=== PATIENT | female | born 1950 | race Caucasian/White ===

== ENCOUNTER 2016-04-18 15:14 | Observation (INO) | payer MEDICARE ==
[2016-04-18] MEDS ORDERED: MORPHINE 4 MG/ML INJECTION IV ONE ×2 (15:34→18:35)
[2016-04-18] MEDS ORDERED: ONDANSETRON HCL 4 MG/2 ML VIAL IV STA (15:34)
[2016-04-18] MEDS ORDERED: NITROGLYCERINE 2 % OINTMENT PACK TOP STA (15:34)
--- NOTE | 2016-04-18 15:42 | EDPRACDOC ---
[id number] Provider: 04/18/16 15:26 Information Source: Patient Mode of Arrival: Ambulance Home Medications: Home Medications Calcium Carbonate [Calcium] 500 mg PO DAILY 04/18/16 Multivit-Min/Folic Acid/Biotin [Hair, Skin and Nails Caplet] 1 tab PO DAILY Lisinopril 5 mg PO DAILY #30 tablet 04/19/16 Allergies/Adverse Reactions: Allergies Allergy/AdvReac Type Severity Reaction Status Date / Time No Known Allergies Allergy Verified 03/02/16 16:48 - History of Present Illness Onset: 1430 HPI: PT PRESENTS WITH SUBSTERNAL CHEST PAIN THAT BEGAN AROUND 1430. GIVEN NITROGLYCERIN AND ASPIRIN WITH PARTIAL RELIEF OF PAIN. Chest Pain Location: Reports: Substernal Pain Radiation: Reports: Arm (R) Symptoms Occur: Reports: At Rest Cardiac Risk Factors: Reports: Smoker, Hypertension Cardiac History of: Denies: [place], Cardiac Cath, Stress Test Medications within 24 Hours: Reports: Aspirin, Nitro Prehospital Care: Reports: SL NTG, ASA Pain Came On: Reports: Suddenly Pain Status: Present Now Pain Description: Reports: Pressure Pain Severity: Mild Pain Worsens With: Reports: Nothing Pain Improves With: Reports: Nitroglycerin Associated Signs and Symptoms: Reports: SOB. Denies: Abdominal Pain, Vomiting ED Past Medical History - History Reviewed Yes Nurses notes reviewed and agree except as marked - Patient Medical History Neurological History: Reports: Dementia (PER SPOUSE) Respiratory History: Reports: COPD, Pneumonia GI/ History: Reports: Ulcer (AGE 20) Musculoskeletal History: Reports: Arthritis Psychological History: Reports: Anxiety (SEVERE PANIC ATTACKS), Bipolar Disorder (NOT TAKING MEDICATION). Denies: Depression, Substance Use Disorder Surgical History: Reports: Tonsillectomy/Adnoidectomy - Family Medical History Reports: Hypertension (FATHER), Stroke (FATHER ), Cardiac Disorders (FATHER). Denies: Diabetes, Cancer - Social Medical History Smoking Status: Heavy tobacco smoker (5 or more cigarettes/day or daily pipe/ cigar) Social History: Denies: Substance Use Disorder Lives In: Home EDM Review of Systems - Review of Systems ROS Negative Except as Marked: Yes All systems reviewed and were negative except as marked Constitutional: negative: Fever Respiratory: Shortness of Breath Cardiovascular: Chest Pain Gastrointestinal: Nausea. negative: Pain - Physical Exam Constitutional: Alert Oriented to: Time, Person, Place Last recorded Vital Signs: Last Vital Signs Temp 98.5 F 04/18/16 15:26 Pulse 89 04/18/16 15:32 Resp 18 04/18/16 15:32 BP 132/86 04/18/16 15:32 Pulse Ox 93 04/18/16 15:32 Oxygen Pulse Oxygen Saturation 93 O2 Device Room Air Oxygen Flow Rate Fraction of Inspired Oxygen ( FIO2) - HEENT Head: negative: Deformity, Laceration Eye Exam: negative: Conjunctival Injection, Pale Conjunctiva Oropharynx: negative: Membranes Dry Nose: negative: Congestion, Discharge Neck: negative: Limited ROM - Respiratory/Cardiovascular Respiratory: Normal - CTA. negative: Accessory Muscle Use, Diminished, Tachypnea Cardiovascular: negative: Bradycardia, Tachycardia, Irregular - GI Auscultation: Normal Palpation: Normal Tenderness: Non tender - Musculoskeletal Extremities: Pedal Pulse (PALPABLE), Radial Pulse (PALPABLE). negative: Calf Tenderness, Pedal Edema - Integumentary Skin: Warm, Dry. negative: Rash - Neurologic Memory Impaired: Normal Motor Function: Normal Mood Description: Anxious, Appropriate Thought: Coherent Perception: Normal ED Chest Pain Exam - Respiratory/Cardiovascular Chest Palpation: negative: Tender, Reproduces Pain - Action Patient received Aspirin within last 24 hours?: Yes ASA given in the ED: No - Results 04/18/16 15:25 04/19/16 04:30 - EKG EKG #1 EKG Time: 15:26 -: Yes EKG interpreted by me Rate: bpm: 90 Rhythm: NSR Block: IVCD ST: Nonsp - Departure Yes I personally saw and evaluated the patient. Disposition: Admit IP To This Hospital Condition: Improved Final Diagnosis: CHEST PAIN Decision to Admit Time: 17:15 Decision to admit date: 04/18/16 Decision to admit: from ED
[2016-04-18 15:55] LABS: AUTOMATED BASOPHIL 0.9 % (0-2); AUTOMATED EOSINOPHIL 1.5 % (0-5); AUTOMATED MONOCYTE 5.4 % (3-10); AUTOMATED NEUTROPHIL 78.2 % (45-76); MPV 8.7 fL (7.4-10.4)
[2016-04-18 16:09] LABS: BLOOD UREA NITROGEN 24 MG/DL (7-17); CALCIUM 8.9 MG/DL (8.4-10.2); CALCULATED OSMOLALITY 260 MOs/Kg (270-290); CHLORIDE 99 mEq/L (98-107); GLUCOSE 124 MG/DL (70-99); SODIUM LEVEL 132 mEq/L (137-146)
[2016-04-18 16:10] LABS: PARTIAL THROMB. TIME 25.6 SEC (22-35); PT-INR 1.1
--- NOTE | 2016-04-18 16:12 | DIRPT ---
CLINICAL DATA: Chest pain since 2 p.m. today EXAM: CHEST 2 VIEW COMPARISON: 12/03/2013 FINDINGS: Interstitial markings at the apices could reflect emphysema but there is no hyperinflation. There is no edema, consolidation, effusion, or pneumothorax. Normal aortic and hilar contours. IMPRESSION: No acute finding or change since 2013. Electronically Signed By: Eliazar Hammond M.D. On: 04/18/2016 16:09
--- NOTE | 2016-04-18 17:26 | HISTPHYS ---
- Chief Complaint Pt Pt presents EMS from home c/o central chest pain rated 9/10 and described as "pressure" with associated nausea, no vomiting, no diaphoresis, no prior hx of same. No adventitious lung sounds on auscultation. Pt appears anxious. Vitals WNL on arrival. - History of Present Illness PT PRESENTS WITH SUBSTERNAL CHEST PAIN THAT BEGAN AROUND 1430. GIVEN NITROGLYCERIN AND ASPIRIN WITH PARTIAL RELIEF OF PAIN. Chest Pain Location: Reports: Substernal Pain Radiation: Reports: Arm (R) Symptoms Occur: Reports: At Rest Cardiac Risk Factors: Reports: Smoker, Hypertension Cardiac History of: Denies: [place], Cardiac Cath, Stress Test Medications within 24 Hours: Reports: Aspirin, Nitro Prehospital Care: Reports: SL NTG, ASA Pain Came On: Reports: Suddenly Pain Status: Present Now Pain Description: Reports: Pressure Pain Severity: Mild Pain Worsens With: Reports: Nothing Pain Improves With: Reports: Nitroglycerin Associated Signs and Symptoms: Reports: SOB. Denies: Abdominal Pain, Vomiting pt admitted to hosp in [place] 04/04/16 for COPD exacerbation (new Diagnosis) Patient is a very vague historian but is concerned about her chest pain. It she has been told that she has elevated blood pressures by at least 1 physician recently but does not recall who or where or what the circumstances were. She continues to enjoy smoking. She will be admitted to the hospital to rule out myocardial infarction. I did counseling director her that she needs to complete history and physical examination. - Medical History Cardiac History: Reports: Hypertension Respiratory History: Reports: COPD, Pneumonia GI/ History: Reports: Ulcer (AGE 20) Musculoskeletal History: Reports: Arthritis Neurological History: Reports: Dementia (PER SPOUSE) Psychological History: Reports: Anxiety (SEVERE PANIC ATTACKS), Bipolar Disorder (NOT TAKING MEDICATION). Denies: Depression, Substance Use Disorder - Surgical History Reports: Tonsillectomy/Adnoidectomy - Medictions/Allergies Allergies No Known Allergies Allergy (Verified 03/02/16 16:48) PER PATIENT Current Medication List: Reviewed Home Medications Calcium Carbonate [Calcium] 500 mg PO DAILY 04/18/16 Multivit-Min/Folic Acid/Biotin [Hair, Skin & Nails Caplet] 1 tab PO DAILY - Family History Reports: Hypertension (FATHER), Stroke (FATHER ), Cardiac Disorders (FATHER). Denies: Diabetes, Cancer - Social History Travel Outside of [place] in the Last 3 Months?: No Lives: With Family Smoking Status: Heavy tobacco smoker (5 or more cigarettes/day or daily pipe/ cigar) Social History: Denies: Substance Use Disorder - Review of Systems Constitutional: No Symptoms Reported (No Fever, chills, wt loss/gain, diaphoresis,fatigue/malaise.) Eyes: No Symptoms Reported (No blurry vision, visual changes, eye pain, or eye redness.) Nose: No Symptoms Reported (No nasal discharge/congestion or bleeding) Mouth: No Symptoms Reported (No oropharyngeal lesions or erythema) Throat/Neck: No Symptoms Reported (No throat pain or swelling.No oropharyngeal lesions or erythema.) Respiratory: No Symptoms Reported (No cough, wheezing, or shortness of breath.) Cardiovascular: Chest Pain, Other (chest pressure) Gastrointestinal: No Symptoms Reported (No abdominal pain, nausea, vomiting, diarrhea, constipation, or bloody stool.) Genitourinary: No Symptoms Reported (No dysuria or hematuria.) Neurological: No Symptoms Reported (No headache, dizziness, seizures, or focal weakness.) Musculoskeletal:: No Symptoms Reported Integumentary: No Symptoms Reported (no rashes or lesions) - Physical Exam Vital Signs: Initial Vitals Temperature 98.5 F 04/18/16 15:26 Pulse Rate 90 04/18/16 15:26 Respiratory Rate 18 04/18/16 15:26 Blood Pressure 132/86 04/18/16 15:26 Pulse Oxygen Saturation 94 04/18/16 15:26 Constitutional: Alert (Awake, Fully oriented. Normal and appropriate affect.Well appearing. Well nourished.), No apparent distress Oriented to: Time, Person, Place - HEENT Head: Normal (normocephalic, atraumatic.), Other (No cervical lymphadenopathy. No supraclavicular lymphadenopathy. Neck: No palpable mass, supple , trachea midline.) Eye: Normal (pupils equal, reactive to light, and round; EOMI, Sclera white) Oropharynx: Normal (Pharynx: Moist without exudate,Gums-no swelling, No oropharyngeal lesions or erythema, Mucous membranes are dry.) Tympanic Membrane: Normal (no discharge) ENT EAC: Normal (No oropharyngeal lesions or erythema. Mucous membranes are dry. ) TMJ: Normal Nose: No Symptoms Reported (septum midline, Nares patent, without discharge or bleeding.) Respiratory: Normal - CTA (Clear to auscultation bilaterally. No wheezing, rales , rhonchi. Chest wall movements are symmetric. No use of accessory muscles to breathe.) Cardiovascular: Normal (RRR , Normal S1, S2. No murmurs, rubs, or gallops. PMI non-displaced. Carotids: no carotid bruits. No bradycardia or tachycardia. DP pulses 2+ bilaterally.) - GI Auscultation: Normal (normal active sounds) Palpation: Normal (Soft,non distended,nontender. No hepatosplenomegaly.) Tenderness: Non tender (No rebound or guarding) Hendrix's Sign: Negative - Musculoskeletal Back: Normal (Non-Tender) Extremities: Normal (Normal tone, DP pulses 2+ bilaterally, No cyanosis or edema bilaterally, FROM bilaterally.) - Integumentary Skin: Normal (Clean, dry, and intact. No rashes. No lesions.) Lymphatics: Normal (No cervical lymphadenopathy. No supraclavicular lymphadenopathy.) - Neurologic Memory Impaired: Normal Motor Function: Normal (Motor 5/5 throughout.Normal tone, Pulses 2+ No cyanosis or edema, FROM) Cranial Nerve: Normal (CN II-XII intact sensation, strength 5/5) Cerebellar: Normal (Babinski: toes downgoing bilaterally. Intact Finger to nose. Sensory grossly intact to light touch. Intact rapid alternating movements bilaterally. No pronator drift.) Mood Description: Normal (Fully oriented. Normal and appropriate affect.) Perception: Normal (Normal and appropriate affect.) - Focused CV Perfusion Exam Vital Signs: Last Vital Signs Temp 98.5 F 04/18/16 15:26 Pulse 82 04/18/16 17:11 Resp 20 04/18/16 17:11 BP 153/86 04/18/16 17:11 Pulse Ox 95 04/18/16 17:11 - Lab Results Laboratory Results - last 24 hr 04/18/16 04/18/16 04/18/16 15:25 15:25 15:25 WBC 11.4 H RBC 4.66 Hgb 13.8 Hct 41.3 MCV 89 MCH 29.7 MCHC 33.5 RDW 15.9 H Plt Count 259 MPV 8.7 Neut % (Auto) 78.2 H Lymph % (Auto) 14.0 L Butts % (Auto) 5.4 Eos % (Auto) 1.5 Baso % (Auto) 0.9 Absolute Neuts (auto) 8.89 H Absolute Lymphs (auto) 1.60 PT 10.9 INR 1.1 APTT 25.6 Sodium 132 L Potassium 4.6 Chloride 99 Carbon Dioxide 24 Anion Gap 14 BUN 24 H Creatinine 0.50 L Estimated GFR (MDRD) > 60 Glucose 124 H Calculated Osmolality 260 L Calcium 8.9 Corrected Calcium 9.0 Total Bilirubin 0.5 AST 25 ALT 26 Alkaline Phosphatase 112 Troponin I < 0.01 Total Protein 7.0 Albumin 3.9 - Diagnostic Findings CHEST 2 VIEW COMPARISON: 12/03/2013 FINDINGS: Interstitial markings at the apices could reflect emphysema but there is no hyperinflation. There is no edema, consolidation, effusion, or pneumothorax. Normal aortic and hilar contours. IMPRESSION: No acute finding or change since 2013. Electronically Signed By: Eliazar Hmamond M.D. On: 04/18/2016 16:09 EKG #1 EKG Time: 15:26 -: Yes EKG interpreted by me Rate: bpm: 90 Rhythm: NSR Block: IVCD ST: Nonsp personally seen by me - Assessment (1) Chest pain R07.9 - CHEST PAIN, UNSPECIFIED Acute Present on Admission: Yes Qualifiers: Chest pain type: precordial pain Qualified Code(s): R07.2 - Precordial pain Patient will be observed in the chest Pain observation center sure rule out for myocardial infarction with serial enzymes and EKGs. If these are negative she will progressed to stress testing. (2) Shortness of breath R06.02 - SHORTNESS OF BREATH Acute Present on Admission: Yes Classic symptom of angina and women. Will monitor closely. May also be related to her CHRONIC OBSTRUCTIVE PULMONARY DISEASE although at the present time she is not wheezing. (3) Hypertension I10 - ESSENTIAL (PRIMARY) HYPERTENSION Suspected Present on Admission: Yes Qualifiers: Hypertension type: essential hypertension Qualified Code(s): I10 - Essential (primary) hypertension Patient has been diagnosed with elevated blood pressures blood pressure here is consistent with hypertension will monitor blood pressures while in the hospital consider discharge on medications if indicated. (4) Tobacco abuse Z72.0 - TOBACCO USE Chronic Present on Admission: Yes Patient does enjoy smoking she quit the other day. Monitor closely. She does request a nicotine patch. Case Care Discussed with: Patient, Nursing Staff Total Time: 55 minutes Critical Care: No Couseling Time (>50% in counseling/coordination): No
[2016-04-18] MEDS ORDERED: METOPROLOL TARTRATE 25 MG TAB PO ONE (18:00)
[2016-04-18] MEDS ORDERED: Pharmacy Order Set Alert SCH (18:00)
[2016-04-18] MEDS ORDERED: ACETAMINOPHEN 325 MG/TAB TABLET PO ONE (18:35)
[2016-04-18] MEDS ORDERED: GUAIFEN 100 MG-DEXTROMETH 10 MG PER 5 ML PO PRN (18:50)
[2016-04-18] MEDS ORDERED: ACETAMINOPHEN 325 MG SUPP PR PRN (18:50)
[2016-04-18] MEDS ORDERED: SENNA CONCENTRATE TAB PO PRN (18:50)
[2016-04-18] MEDS ORDERED: ONDANSETRON HCL 4 MG/2 ML VIAL IV PRN (18:50)
[2016-04-18] MEDS ORDERED: PROMETHAZINE 25 MG/ML VIAL IV PRN (18:50)
[2016-04-18] MEDS ORDERED: Aluminum;Magnesium;Simethicone 30 ML UDC PO PRN (18:50)
[2016-04-18] MEDS ORDERED: BISACODYL 5 MG TAB PO PRN (18:50)
[2016-04-18] MEDS ORDERED: BENZONATATE 100 MG PERLES PO PRN (18:50)
[2016-04-18 20:02] VITALS: BMI 27.5
[2016-04-18] MEDS: NITROGLYCERINE 0.4 MG TAB SL PRN ×3 (20:07→20:43)
[2016-04-18] MEDS ORDERED: Vaccine Screening Complete SCH (21:00)
[2016-04-18] MEDS: ASPIRIN (CHEWABLE) 81 MG TAB PO SCH (22:48)
[2016-04-18] MEDS: ENOXAPARIN 40 MG/0.4 ML PFS SQ SCH (22:48)
[2016-04-18] MEDS: MORPHINE 2 MG/ML INJECTION IV PRN (23:19)
[2016-04-19] MEDS: TEMAZEPAM 15 MG CAP PO PRN ×3 (00:21→23:36)
[2016-04-19] MEDS: MORPHINE 2 MG/ML INJECTION IV PRN ×5 (03:21→21:13)
[2016-04-19 05:00] LABS: LDL (calc.) 91.4 MG/DL (<100); VLDL (calc.) 15.6 MG/DL (5-40)
[2016-04-19] MEDS: NITROGLYCERINE 0.4 MG TAB SL PRN ×3 (05:35→05:48)
[2016-04-19] MEDS ORDERED: FOLIC ACID PO SCH (09:00)
[2016-04-19] MEDS ORDERED: MULTIVIT MIN PO SCH (09:00)
[2016-04-19] MEDS ORDERED: [UNRECOGNIZED DRUG - OTHER] PO SCH (09:00)
[2016-04-19] MEDS ORDERED: BIOTIN PO SCH (09:00)
[2016-04-19] MEDS ORDERED: SODIUM CHLORIDE 0.9% 10 ML FLUSH FLUSH ONE (11:00)
[2016-04-19] MEDS ORDERED: DOBUTamine 500,000 MCG/250 ML RTU IV ONE (11:00)
[2016-04-19] MEDS ORDERED: SESTAMIBI 8 MCI V IV ONE (11:49)
[2016-04-19] MEDS ORDERED: VITAMINS, MULTIPLE CAP PO SCH (12:00)
[2016-04-19] MEDS ORDERED: CALCIUM CARBONATE 500 MG TAB PO SCH (12:00)
[2016-04-19] MEDS: ACETAMINOPHEN 325 MG/TAB TABLET PO PRN ×2 (12:03→19:31)
[2016-04-19] MEDS: ASPIRIN (CHEWABLE) 81 MG TAB PO SCH (12:04)
--- NOTE | 2016-04-19 14:48 | DIRPT ---
CLINICAL DATA: Chest pain EXAM: NUCLEAR MEDICINE CARDIOLITE DOBUTAMINE RESTING/STRESS TECHNIQUE: Cardiolite cardiac stress test Dobutamine protocol RADIOPHARMACEUTICALS: Eight and 25 millicuries TC 99 M Cardiolite COMPARISON: None. FINDINGS: A Cardiolite cardiac stress test Dobutamine protocol was performed. The stress portion of the test was supervised by Dr. Triana. I reviewed the images with him. There is no evidence of ischemia or significant scar. Inferior wall diaphragmatic attenuation is noted. Normal wall motion and contractility. Left ventricle ejection fraction is 73%. IMPRESSION: There is no evidence of ischemia or significant scar. Inferior wall diaphragmatic attenuation is noted. Normal wall motion and contractility. Left ventricle ejection fraction is 73%. Electronically Signed By: Saravanan Shipley M.D. On: 04/19/2016 14:45
--- NOTE | 2016-04-19 15:00 | CAPUEKG ---
[place], [place] Test Date: 2016-04-19 Pat Name: URIEL MCKINNON Department: Room: 444 Gender: Female Contract Law Specialist: JUAN CARLOS LYNNB: Requested By: Order Number: Reading MD: Christiano Triana MD Measurements Intervals [place] Rate: 75 P: 81 CT: 222 QRS: 48 QRSD: 68 T: 69 QT: 390 QTc: 435 Interpretive Statements Sinus rhythm with 1st degree AV block Otherwise normal ECG Electronically Signed On 04-19-16 14:59:49 EST by Christiano Triana MD <[id number]> [id number]
--- NOTE | 2016-04-19 15:00 | CAPUEKG ---
[place], [place] Test Date: 2016-04-18 Pat Name: URIEL MCKINNON Department: Room: 444 Gender: Female Forestry Patrolman: JUAN CARLOS LYNNB: Requested By: Order Number: Reading MD: Christiano Triana MD Measurements Intervals [place] Rate: 67 P: 75 [place]: 228 QRS: 0 QRSD: 74 T: 54 QT: 382 QTc: 403 Interpretive Statements Sinus rhythm with 1st degree AV block Otherwise normal ECG Electronically Signed On 04-19-16 15:00:01 EST by Christiano Triana MD <[id number]> [id number]
--- NOTE | 2016-04-19 15:00 | CAPUEKG ---
[place], [place] Test Date: 2016-04-19 Pat Name: URIEL MCKINNON Department: Room: 444 Gender: Female Bottom Steep Tender: JUAN CARLOS LYNNB: Requested By: Order Number: Reading MD: Christiano Triana MD Measurements Intervals [place] Rate: 67 P: 78 [place]: 230 QRS: 61 QRSD: 78 T: 72 QT: 398 QTc: 420 Interpretive Statements Sinus rhythm with 1st degree AV block Otherwise normal ECG Electronically Signed On 04-19-16 14:59:56 EST by Christiano Triana MD <[id number]> [id number]
--- NOTE | 2016-04-19 15:59 | PCM.STRESS ---
This is a dobutamine stress Cardiolite test. Patient initially was scheduled for Lexiscan but had bronchospasm. The heart rate and blood pressure, 71 beats per minute and 126/90. The peak heart rate and blood pressure, 125 beats per minute and 170/106. The resting EKG shows sinus rhythm 1st degree heart block otherwise normal. The stress EKG is normal to 81% of maximum heart rate of 154 beats per minute. The patient was stressed with dobutamine stage III 30 micrograms/kilogram per minute for 8 minutes 5 seconds and was stopped due to patient complaints of weakness. There is no chest pain. The blood pressure response to dobutamine is normal. The rhythm is sinus, there is no arrhythmia. Symptoms present included palpitation weakness, there is no chest pain. The radiologist will generate the Cardiolite imaging report.
--- NOTE | 2016-04-19 16:10 | PCM.DCS92 ---
- Final/Secondary Discharge Diagnosis (1) Chest pain Acute R07.9 - CHEST PAIN, UNSPECIFIED Present on Admission: Yes precordial pain R07.2 - Precordial pain Comment: Patient will be observed in the chest Pain observation center sure rule out for myocardial infarction with serial enzymes and EKGs. If these are negative she will progressed to stress testing. (2) Shortness of breath Acute R06.02 - SHORTNESS OF BREATH Present on Admission: Yes Comment: Classic symptom of angina and women. Will monitor closely. May also be related to her CHRONIC OBSTRUCTIVE PULMONARY DISEASE although at the present time she is not wheezing. (3) Hypertension Suspected I10 - ESSENTIAL (PRIMARY) HYPERTENSION Present on Admission: Yes essential hypertension I10 - Essential (primary) hypertension Comment: Patient has been diagnosed with elevated blood pressures blood pressure here is consistent with hypertension will monitor blood pressures while in the hospital consider discharge on medications if indicated. (4) Tobacco abuse Chronic Z72.0 - TOBACCO USE Present on Admission: Yes Comment: Patient does enjoy smoking she quit the other day. Monitor closely. She does request a nicotine patch. Discharge Disposition: Home Discharge Condition: Improved Cognitive Discharge Status: Unimpaired Fuctional Discharge Status: Independent Physician Follow up/Referrals: Salvador Mathias MD [Primary Care Provider] - One Week New Prescriptions: Lisinopril 5 mg PO DAILY #30 tablet Discharge Home Medication List Calcium Carbonate [Calcium] 500 mg PO DAILY 04/18/16 [History Confirmed 04/18/16 ] Multivit-Min/Folic Acid/Biotin [Hair, Skin and Nails Caplet] 1 tab PO DAILY [History Confirmed 04/18/16] Lisinopril 5 mg PO DAILY #30 tablet 04/19/16 [Rx] New Discharge Medications (Rx) Lisinopril 5 mg PO DAILY #30 tablet 04/19/16 [Rx] O2 Device: Room Air Diet at Discharge: Heart Healthy, Low Salt Activity: No Restrictions, As Tolerated Call Office For: Worsening Symptoms, Fever over 100.5, Pain Uncontrolled By Meds Discontinue use of:: All Types of Tobacco - DC Summary Notes Hospital Course Note:: Discharge summary on patient named URIEL MCKINNON admitted to [facility] on 04/18/16 by Jessica Oviedo MD. Date of discharge is []. The patient was admitted under observation and serial cardiac enzymes and EKGs were obtained. The patient ruled out for myocardial infarction by serial enzymes and EKGs. The patient then underwent a stress test. The stress test showed no evidence of reversible ischemia. The patient is stable for discharge home. Patient was counseled to quit smoking. She was also started on lisinopril 5 mg p.o. q.day for elevated blood pressure. She is to check her blood pressure regularly and follow up with Dr. Mathias. Total Time: 45 minutes - Physical Exam Vital Signs: Last Vital Signs Temp 97.3 F L 04/19/16 11:49 Pulse 80 04/19/16 14:00 Resp 18 04/19/16 11:49 BP 153/81 04/19/16 11:49 Pulse Ox 98 04/19/16 11:49 Oxygen Pulse Oxygen Saturation 98 O2 Device Nasal Cannula Oxygen Flow Rate 2 Fraction of Inspired Oxygen ( FIO2) Constitutional: Alert (Awake, Fully oriented. Normal and appropriate affect.Well appearing. Well nourished.), No apparent distress Oriented to: Time, Person, Place - HEENT Head: Normal (normocephalic, atraumatic.), Other (No cervical lymphadenopathy. No supraclavicular lymphadenopathy. Neck: No palpable mass, supple , trachea midline.) Eye: Normal (pupils equal, reactive to light, and round; EOMI, Sclera white) Oropharynx: Normal (Pharynx: Moist without exudate,Gums-no swelling, No oropharyngeal lesions or erythema, Mucous membranes are dry.) Tympanic Membrane: Normal (no discharge) ENT EAC: Normal (No oropharyngeal lesions or erythema. Mucous membranes are dry. ) TMJ: Normal Nose: No Symptoms Reported (septum midline, Nares patent, without discharge or bleeding.) - Respiratory/Cardiovascular Respiratory: Normal - CTA (Clear to auscultation bilaterally. No wheezing, rales , rhonchi. Chest wall movements are symmetric. No use of accessory muscles to breathe.) Cardiovascular: Normal (RRR , Normal S1, S2. No murmurs, rubs, or gallops. PMI non-displaced. Carotids: no carotid bruits. No bradycardia or tachycardia. DP pulses 2+ bilaterally.) - GI Auscultation: Normal (normal active sounds) Palpation: Normal (Soft,non distended,nontender. No hepatosplenomegaly.) Tenderness: Non tender (No rebound or guarding) Hendrix's Sign: Negative - Musculoskeletal Back: Normal (Non-Tender) Extremities: Normal (Normal tone, DP pulses 2+ bilaterally, No cyanosis or edema bilaterally, FROM bilaterally.) - Integumentary Skin: Normal (Clean, dry, and intact. No rashes. No lesions.) Lymphatics: Normal (No cervical lymphadenopathy. No supraclavicular lymphadenopathy.) - Neurologic Memory Impaired: Normal Cerebellar: Normal (Babinski: toes downgoing bilaterally. Intact Finger to nose. Sensory grossly intact to light touch. Intact rapid alternating movements bilaterally. No pronator drift.) Mood Description: Normal (Fully oriented. Normal and appropriate affect.) Perception: Normal (Normal and appropriate affect.) - Other Exam Other Exam Findings: Stress test report: This is a dobutamine stress Cardiolite test. Patient initially was scheduled for Lexiscan but had bronchospasm. The heart rate and blood pressure, 71 beats per minute and 126/90. The peak heart rate and blood pressure, 125 beats per minute and 170/106. The resting EKG shows sinus rhythm 1st degree heart block otherwise normal. The stress EKG is normal to 81% of maximum heart rate of 154 beats per minute. The patient was stressed with dobutamine stage III 30 micrograms/kilogram per minute for 8 minutes 5 seconds and was stopped due to patient complaints of weakness. There is no chest pain. The blood pressure response to dobutamine is normal. The rhythm is sinus, there is no arrhythmia. Symptoms present included palpitation weakness, there is no chest pain. The radiologist will generate the Cardiolite imaging report. Abnormal Lab Results 04/18/16 15:25 Sodium 132 L BUN 24 H Creatinine 0.50 L Glucose 124 H Calculated Osmolality 260 L
[2016-04-19] MEDS: ENOXAPARIN 40 MG/0.4 ML PFS SQ SCH (17:30)
[2016-04-20] MEDS: ACETAMINOPHEN 325 MG/TAB TABLET PO PRN (06:13)
[2016-04-20 06:33] VITALS: BP 132/85; TEMP 97.7
[2016-04-20] MEDS: ASPIRIN (CHEWABLE) 81 MG TAB PO SCH (07:43)
[2016-04-20] MEDS: MORPHINE 2 MG/ML INJECTION IV PRN (07:47)
--- NOTE | 2016-04-20 09:15 | GENMEDPROG ---
Note 65-year-old female discharge yesterday who later complained of nausea and vomiting. She said she could possibly be go home because of it. Staff never saw any nausea or vomiting or evidence of vomiting. Later patient stated that she did want to go home because her smokes around her. Patient has had no evidence of nausea vomiting overnight and is stable for discharge home. As no nausea vomiting was ever noted there is no need to change any of the diagnoses on her discharge summary from yesterday which remains accurate.
[2016-04-20 09:32] VITALS: PULSE 83
== END 2016-04-20 10:36 | disposition home or self-care (01) ==
LOC: ED 15:14 → PCU 17:38 → MPS3 04-19 23:20
PROVIDERS: ADMIT Hospitalist; ATTEND Hospitalist
DX: R07.9 Chest pain, unspecified (principal); R06.02 Shortness of breath; I10 Essential (primary) hypertension; J44.9 Chronic obstructive pulmonary disease, unspecified; F17.200 Nicotine dependence, unspecified, uncomplicated
CPT/HCPCS: 36415; 71020; 78452; 80053; 80061; 82947; 84484; 85025; 85610; 85730; 93005; 93017; 96372; 96374; 96375; 96376; 99285; 99406; A4216; A9270; A9500; G0378; J1250; J1650; J2270; J2405; J3490

== ENCOUNTER 2016-05-08 14:57 | Emergency (ER) | payer MEDICARE ==
[2016-05-08 15:16] VITALS: TEMP 98.1
[2016-05-08 15:18] VITALS: BMI 27.4
[2016-05-08] MEDS ORDERED: HYDROCODONE 5 MG/ACETAMIN 325 MG TAB PO ONE (15:53)
--- NOTE | 2016-05-08 15:58 | EDPRACDOC ---
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 Pain Severity: Reports: Mild Injuries/Pain Location: Reports: pelvis (LEFT HIP) Reason for Fall: Reports: slipped Loss of Consciousness: no loss of consciousness Modifying Factors: improves with: movement Associated Symptoms (Fall): Reports: denies symptoms Allergies/Adverse Reactions: Allergies No Known Allergies Allergy (Verified 05/08/16 15:15) PER PATIENT Home Medications: Ambulatory Orders Calcium Carbonate [Calcium] 500 mg PO DAILY 04/18/16 Multivit-Min/Folic Acid/Biotin [Hair, Skin and Nails Caplet] 1 tab PO DAILY Aspirin (Enteric Coated) [Ecotrin] 81 mg PO DAILY 05/08/16 Hydrocodone Bit/Acetaminophen [Hydrocodon-Acetaminophen 5-325] 1 - 2 tab PO Q6H PRN #7 tab 05/08/16 Ibuprofen Tablet [Motrin] 600 mg PO Q6H PRN #10 tablet 05/08/16 ED Past Medical History - History Reviewed Yes Nurses notes reviewed and agree except as marked - Patient Medical History Neurological History: Reports: Dementia (PER SPOUSE) Cardiac History: Reports: Hypertension Respiratory History: Reports: COPD, Pneumonia GI/ History: Reports: Ulcer (AGE 20) Musculoskeletal History: Reports: Arthritis Psychological History: Reports: Anxiety (SEVERE PANIC ATTACKS), Bipolar Disorder (NOT TAKING MEDICATION). Denies: Depression, Substance Use Disorder Systemic History: Denies: Cancer Surgical History: Reports: Tonsillectomy/Adnoidectomy Additional Past Surgical History: DAGO HIP REPLACEMENTS - Family Medical History Reports: Hypertension (FATHER), Stroke (FATHER ), Cardiac Disorders (FATHER). Denies: Diabetes, Cancer - Social Medical History Smoking Status: Heavy tobacco smoker (5 or more cigarettes/day or daily pipe/ cigar) Social History: Denies: Substance Use Disorder EDM Review of Systems - Review of Systems ROS Negative Except as Marked: Yes All systems reviewed and were negative except as marked - Physical Exam Constitutional: Alert (Awake), No apparent distress Oriented to: Time, Person, Place Last recorded Vital Signs: Last Vital Signs Temp 98.1 F 05/08/16 15:15 Pulse 86 05/08/16 15:15 Resp 20 05/08/16 15:15 BP 159/104 H 05/08/16 15:15 Pulse Ox 95 05/08/16 15:15 Oxygen Pulse Oxygen Saturation 95 O2 Device Oxygen Flow Rate Fraction of Inspired Oxygen ( FIO2) - HEENT Head: Normal ( normocephalic) Eye Exam: Normal (PERRL, EOMI, Sclera white) Oropharynx: Normal (Pharynx:Moist without exudate,Gums-no swelling) Tympanic Membrane: Normal ENT EAC: Normal TMJ: Normal Nose: No Symptoms Reported (septum midline) Neck: Normal (FROM, trachea at midline) - Respiratory/Cardiovascular Respiratory: Normal - CTA (BBS clear to auscultation without adventitious sounds ) Cardiovascular: Normal (RRR without murmur, gallop or rub) - GI Auscultation: Normal (NABS) Palpation: Normal (Soft,No rebound or guarding, non distended) Tenderness: Non tender Hendrix's Sign: Negative - Musculoskeletal Back: Normal (Non-Tender) Extremities: Normal (Normal tone, Pulses 2+ No cyanosis or edema, FROM) Musculoskeletal Comment: BILATERAL LOWER EXTREMITIES NONTENDER PALPATION FULL RANGE OF MOTION OF THE ANKLE KNEE AND HIP AT THE LEFT HIP DOES CAUSE SOME MILD PAIN WITH RANGE OF MOTION LIMBS ARE EQUAL IN LENGTH. SKIN IS NORMAL SENSATION NORMAL THE L1-S1 NERVE DISTRIBUTION. DORSALIS PEDIS 2+ BILATERALLY. - Integumentary Skin: Normal, Warm, Dry Lymphatics: Normal (no adenopathy) - Neurologic Memory Impaired: Normal Motor Function: Normal (Normal tone, Pulses 2+ No cyanosis or edema, FROM) Cranial Nerve: Normal (CN II-X11 intact sensation, strength 5/5) Cerebellar: Normal Mood Description: Normal Perception: Normal - Additional Information Patient Name: URIEL MCKINNON LOC: ED : 1950 AGE: 65 Order Date:05/08/16 Date of Service:08/17 Report # [id number] Ord Physician: Rufina Calix MD Exam # [id number] Emergency Physician: Rufina Calix MD Exam(s): [id number] RAD/DG HIP COMPLETE 2+V-L 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 No evidence of fracture or dislocation. Visualized bony pelvis appears intact. Degenerative changes the lower lumbar spine. Calcified uterine fibroid overlying the pelvis. 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 No fracture or dislocation is seen. Electronically Signed By: Bev Nieto M.D. On: 05/08/2016 16:21 Electronically Signed By: Bev Nieto MD Electronically Signed Date/Time: [id number] Dictate Date/Time: 05/08/161619 Technologist: Thi Ferrari Transcribed By: Lucía Transcribed Date/Time: 05/08/16 1621 - Departure Disposition: Home Condition: Stable Final Diagnosis: Accidental fall Accidental fall Qualifiers: Encounter type: initial encounter Qualified Code(s): W19.XXXA - Unspecified fall, initial encounter Contusion of left hip and thigh Qualifiers: Encounter type: initial encounter Qualified Code(s): S70.02XA - Contusion of left hip, initial encounter Instructions: Fall Prevention for Older Adults (ED), RICE Therapy (ED) Education/Counseling Given To: Patient Education/Counseling Given Regarding: Diagnosis, Treatment, Prognosis Referrals: Salvador Mathias MD [Primary Care Provider] - One Week Prescriptions: New Hydrocodone Bit/Acetaminophen [Hydrocodon-Acetaminophen 5-325] 1 - 2 tab PO Q6H PRN #7 tab PRN Reason: Pain Ibuprofen Tablet [Motrin] 600 mg PO Q6H PRN #10 tablet PRN Reason: Pain No Action Calcium Carbonate [Calcium] 500 mg PO DAILY Multivit-Min/Folic Acid/Biotin [Hair, Skin and Nails Caplet] 1 tab PO DAILY Aspirin (Enteric Coated) [Ecotrin] 81 mg PO DAILY
--- NOTE | 2016-05-08 16:24 | DIRPT ---
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 No evidence of fracture or dislocation. Visualized bony pelvis appears intact. Degenerative changes the lower lumbar spine. Calcified uterine fibroid overlying the pelvis. 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 No fracture or dislocation is seen. Electronically Signed By: Bev Nieto M.D. On: 05/08/2016 16:21
[2016-05-08 17:11] VITALS: BP 172/106; PULSE 88
== END 2016-05-08 17:16 | disposition home or self-care (01) ==
LOC: ED 14:57
DX: S70.02XA Contusion of left hip, initial encounter (principal); W19.XXXA Unspecified fall, initial encounter; Y93.9 Activity, unspecified
CPT/HCPCS: 73502; 99283; A9270; J3490

== ENCOUNTER 2016-05-10 15:02 | Emergency (ER) | payer MEDICARE ==
[2016-05-10 15:03] VITALS: BMI 27.4
[2016-05-10 15:45] VITALS: TEMP 98.5
[2016-05-10] MEDS ORDERED: MORPHINE 4 MG/ML INJECTION IV ONE (15:57)
--- NOTE | 2016-05-10 16:17 | EDPRACDOC ---
- General Information Chief Complaint: Neuro Symptoms/Deficits Stated Complaint: FALL Time Seen by Provider: 05/10/16 15:26 Information Source: Patient Mode Of Arrival: Car Home Medications: Home Medications Calcium Carbonate [Calcium] 500 mg PO DAILY 04/18/16 Multivit-Min/Folic Acid/Biotin [Hair, Skin and Nails Caplet] 1 tab PO DAILY Aspirin (Enteric Coated) [Ecotrin] 81 mg PO DAILY 05/08/16 Hydrocodone Bit/Acetaminophen [Hydrocodon-Acetaminophen 5-325] 1 - 2 tab PO Q6H PRN #7 tab 05/08/16 Ibuprofen Tablet [Motrin] 600 mg PO Q6H PRN #10 tablet 05/08/16 Tramadol HCl [Ultram] 50 mg PO Q4-6H #30 tablet 05/10/16 Allergies/Adverse Reactions: Allergies Allergy/AdvReac Type Severity Reaction Status Date / Time No Known Allergies Allergy Verified 05/08/16 15:15 - History of Present 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 PT STATES THAT SHE WAS WALKING IN HER HOUSE TO GET LUNCH WHEN SHE "JUST PASSED OUT". STATES SHE "MUST'VE BEEN OUT FOR 15 OR 20 MINS", AND THAT SHE WOKE UP TO HER SHAKING HER. STATES SHE NOW HAS HIP PAIN. SOME DIZZINESS PRIOR TO SYNCOPAL EPISODE. DENIES CP, SHOB, ABD PAIN, N/V/D. NO APPARENT DISTRESS AT THIS TIME. Duration: Minutes Presyncopal phase:: Reports: None Postsyncopal phase:: Reports: Delayed recovery Prehospital care: Reports: None Associated Signs/Symptoms: Reports: Vertigo ED Past Medical History - History Reviewed Yes Nurses notes reviewed and agree except as marked - Patient Medical History Neurological History: Reports: Dementia (PER SPOUSE) Cardiac History: Reports: Hypertension Respiratory History: Reports: COPD, Pneumonia GI/ History: Reports: Ulcer (AGE 20) Musculoskeletal History: Reports: Arthritis Psychological History: Reports: Anxiety (SEVERE PANIC ATTACKS), Bipolar Disorder (NOT TAKING MEDICATION). Denies: Depression, Substance Use Disorder Systemic History: Denies: Cancer Surgical History: Reports: Tonsillectomy/Adnoidectomy - Family Medical History Reports: Hypertension (FATHER), Stroke (FATHER ), Cardiac Disorders (FATHER). Denies: Diabetes, Cancer - Social Medical History Smoking Status: Heavy tobacco smoker (5 or more cigarettes/day or daily pipe/ cigar) Social History: Denies: Other Substance Use EDM Review of Systems - Review of Systems ROS Negative Except as Marked: Yes All systems reviewed and were negative except as marked Constitutional: No Symptoms Reported Eyes: No Symptoms Reported Ears: No Symptoms Reported Throat: No Symptoms Reported Nose: No Symptoms Reported Respiratory: No Symptoms Reported Cardiovascular: No Symptoms Reported Gastrointestinal: No Symptoms Reported Neurological: Dizziness, Other (SNYCOPE) Musculoskeletal: Hip Integumentary: No Symptoms Reported - Physical Exam Constitutional: Alert (Awake), No apparent distress Oriented to: Time, Person, Place Last recorded Vital Signs: Last Vital Signs Temp 98.5 F 05/10/16 15:32 Pulse 97 05/10/16 15:32 Resp 18 05/10/16 15:32 BP 158/80 05/10/16 15:32 Pulse Ox 96 05/10/16 15:32 Oxygen Pulse Oxygen Saturation 96 O2 Device Room Air Oxygen Flow Rate Fraction of Inspired Oxygen ( FIO2) - HEENT Head: Normal Eye Exam: Normal Neck: Normal, Denies Pain, Midline - Respiratory/Cardiovascular Respiratory: Normal - CTA Cardiovascular: Normal - GI Auscultation: Normal Palpation: Normal Tenderness: Non tender - Musculoskeletal Back: Normal Extremities: Other (PT STATES TTP TO RIGHT HIP W/OUT APPARENT DEFORMITY/BRUISING /SWELLING; OLD SURGICAL SCAR NOTED; EQUAL LENGTHS OF EXTREMITIES; PEDAL PULSES PRESENT) - Integumentary Skin: Normal Lymphatics: Normal - Neurologic Cerebellar: Normal Mood Description: Normal Thought: Coherent Perception: Normal - Results 05/10/16 16:35 05/10/16 16:35 - EKG EKG #1 EKG Time: 16:05 -: Yes EKG interpreted by me Rate: bpm: 82 [place]: Normal Rhythm: NSR Block: 1 Hypertrophy: None ST: Normal Comparison: 04/18/16 Decision Time to Discharge: 17:54 - Departure Disposition: Home Condition: Good Final Diagnosis: Syncope and collapse Instructions: Syncope (ED) Education/Counseling Given To: Patient Education/Counseling Given Regarding: Diagnosis, Treatment, Follow Up Referrals: None,No Provider [Primary Care Provider] - One Week Prescriptions: New Tramadol HCl [Ultram] 50 mg PO Q4-6H #30 tablet No Action Calcium Carbonate [Calcium] 500 mg PO DAILY Multivit-Min/Folic Acid/Biotin [Hair, Skin and Nails Caplet] 1 tab PO DAILY Aspirin (Enteric Coated) [Ecotrin] 81 mg PO DAILY Hydrocodone Bit/Acetaminophen [Hydrocodon-Acetaminophen 5-325] 1 - 2 tab PO Q6H PRN #7 tab PRN Reason: Pain Ibuprofen Tablet [Motrin] 600 mg PO Q6H PRN #10 tablet PRN Reason: Pain Additional Instructions: REST AND PLENTY OF FLUIDS. FOLLOW UP WITH PCP IN 2-3 DAYS IF NEEDED.
[2016-05-10] MEDS ORDERED: OXYCODONE HCL 5 MG TABLET PO ONE (16:25)
[2016-05-10 16:30] LABS: CA OXALATE 3+; LEUKOCYTES/URINE TRACE (NEGATIVE); NITRITE/URINE NEG (NEGATIVE); URINE OCCULT BLOOD 1+ (NEG/TRACE); WBC/URINE 0-2 (0-5)
--- NOTE | 2016-05-10 16:36 | DIRPT ---
CLINICAL DATA: Syncopal episode fall last fall onto the right hip. Right hip pain. EXAM: RIGHT HIP (WITH PELVIS) 2-3 VIEWS COMPARISON: 11/25/2015 FINDINGS: No fracture. Bilateral total hip arthroplasties appear well seated and aligned and unchanged from the prior study. SI joints and symphysis pubis are normally aligned. Calcified fibroid in the central pelvis. Soft tissues otherwise unremarkable. IMPRESSION: No fracture or dislocation. No evidence of loosening of the orthopedic hardware. Electronically Signed By: Dionte Morillo M.D. On: 05/10/2016 16:34
--- NOTE | 2016-05-10 16:37 | DIRPT ---
CLINICAL DATA: Syncope today with a fall. Initial encounter. EXAM: CHEST 1 VIEW COMPARISON: PA and lateral chest 04/18/2016 and 12/03/2013. FINDINGS: The lungs are clear. Heart size is normal. No pneumothorax or pleural effusion. No focal bony abnormality. IMPRESSION: No acute disease. Electronically Signed By: Fortunato Avelar M.D. On: 05/10/2016 16:34
[2016-05-10 17:07] LABS: AUTOMATED BASOPHIL 0.8 % (0-2); AUTOMATED EOSINOPHIL 1.1 % (0-5); AUTOMATED LYMPH 23.2 % (17-44); AUTOMATED MONOCYTE 5.6 % (3-10); AUTOMATED NEUTROPHIL 69.3 % (45-76); MPV 8.2 fL (7.4-10.4)
[2016-05-10 17:19] LABS: PARTIAL THROMB. TIME 25.1 SEC (22-35); PT-INR 1.1
[2016-05-10 17:29] LABS: BLOOD UREA NITROGEN 20 MG/DL (7-17); CALCIUM 9.8 MG/DL (8.4-10.2); CALCULATED OSMOLALITY 264 MOs/Kg (270-290); CHLORIDE 99 mEq/L (98-107); CPK TOTAL WITH POSSIBLE MB < 20 IU/L (30-134); GLUCOSE 87 mg/dL (70-99); SODIUM LEVEL 136 mEq/L (137-146); TOTAL PROTEIN 7.1 G/DL (6.3-8.2)
--- NOTE | 2016-05-10 17:29 | DIRPT ---
CLINICAL DATA: Syncope, fall. RIGHT-sided head pain. EXAM: CT HEAD WITHOUT CONTRAST TECHNIQUE: Contiguous axial images were obtained from the base of the skull through the vertex without intravenous contrast. COMPARISON: CT head 03/27/2015. FINDINGS: No evidence for acute infarction, hemorrhage, mass lesion, hydrocephalus, or extra-axial fluid. Normal for age cerebral volume. Minor hypoattenuation of white matter could represent early small vessel disease. No skull fracture. Vascular calcification. No acute sinus or mastoid disease. In the LEFT suboccipital region there is been a craniectomy. This may have been for treatment of a symptomatic vascular loop, as there is a small amount of high attenuation material in the LEFT prepontine cistern. No widening of the LEFT internal auditory canal. Similar appearance to priors. IMPRESSION: No skull fracture or intracranial hemorrhage. No posttraumatic sequelae are evident. Stable post LEFT suboccipital craniectomy changes. Electronically Signed By: Rainer Montaño M.D. On: 05/10/2016 17:26
[2016-05-10] MEDS ORDERED: IBUPROFEN 600 MG TAB PO ONE (17:59)
[2016-05-10 18:20] VITALS: BP 156/60; PULSE 89
== END 2016-05-10 18:19 | disposition home or self-care (01) ==
LOC: ED 15:02 → EDMC 18:19
DX: R55 Syncope and collapse (principal); M25.551 Pain in right hip; I10 Essential (primary) hypertension; J44.9 Chronic obstructive pulmonary disease, unspecified; F41.9 Anxiety disorder, unspecified; F17.200 Nicotine dependence, unspecified, uncomplicated; Z79.899 Other long term (current) drug therapy
CPT/HCPCS: 36415; 70450; 71010; 73502; 80053; 81001; 82550; 84484; 85025; 85610; 85730; 93005; 99284; A9270; J3490